=== PATIENT | male | born 1975 | race Caucasian/White ===

== ENCOUNTER → 2016-11-24 | Outpatient (CLI) | payer BC ==
[~2016-11-24] MED LIST: BACTRIM DS TAB1 EACH PO; BACTROBAN NASAL1 GM; BACTROBAN OINT22 GM TOP; HIBICLENS; PRILOSEC OTC20 MG PO; ZYVOX600 MG PO
== END ==
LOC: KOH-I 09:00
DX: R10.0 Acute abdomen (principal); M54.5 Low back pain; M54.2 Cervicalgia; R16.0 Hepatomegaly, not elsewhere classified; K82.8 Other specified diseases of gallbladder; M47.812 Spondylosis without myelopathy or radiculopathy, cervical region; M47.816 Spondylosis without myelopathy or radiculopathy, lumbar region
CPT/HCPCS: 72050; 72110; 76705

== ENCOUNTER → 2016-12-12 | Outpatient (CLI) | payer BC | LOC: KOH-I 12-07 10:30 | DX: M54.2 Cervicalgia (principal); M54.5 Low back pain; M51.36 Other intervertebral disc degeneration, lumbar region; M25.78 Osteophyte, vertebrae; M48.06 Spinal stenosis, lumbar region; M50.30 Other cervical disc degeneration, unspecified cervical region; M48.02 Spinal stenosis, cervical region | CPT/HCPCS: 72125; 72131 ==

== ENCOUNTER → 2017-01-06 | Outpatient (CLI) | payer BC | LOC: KOH-I 08:00 | DX: D69.6 Thrombocytopenia, unspecified (principal); R16.0 Hepatomegaly, not elsewhere classified; R16.1 Splenomegaly, not elsewhere classified | CPT/HCPCS: 76705 ==